=== PATIENT | female | born 1995 | race African-American/Black ===

== ENCOUNTER 2020-03-05 06:33 | Observation (INO) | payer OTHER, SELFPAY ==
[2020-03-05] VITALS (21 sets, daily range): BP systolic 98–133; BP diastolic 66–91; PULSE 104–118; RESP 12–19; TEMP 36.4–36.7; O2SAT 96–100; BMI 23.7
--- NOTE | ~2020-03-05 | XR_ITS ---
EXAMINATION: XR chest 2V DATE: 03/05/2020 06:59 INDICATION: Chest pain and shortness of breath TECHNIQUE: PA and lateral views of the chest were obtained. COMPARISON: None FINDINGS: The lungs are clear with no focal airspace opacities, pulmonary edema, pleural effusion or pneumothor ax. The cardiomediastinal silhouette is normal. Visualized bones and soft tissues are unremarkable. IMPRESSION: 1. No acute cardiopulmonary disease. Reviewed, dictated and finalized at location A.
--- NOTE | 2020-03-05 06:35 | ECG_ITS ---
Measurements Intervals [place] Rate: 111 P: 42 ND: 92 QRS: 75 QRSD: 82 T: 6 QT: 301 QTc: 410 Interpretive Statements SINUS TACHYCARDIA WITH SHORT ND INTERVAL POSSIBLE LEFT ATRIAL ENLARGEMENT NONSPECIFIC T-WAVE ABNORMALITY- ANT/INF LEADS BASELINE ARTIFACT- I, II, AVL ABNORMAL ECG Electronically Signed On 03-05-2020 14:10:08 CDT by Claudy Cota D.O.
--- NOTE | 2020-03-05 06:38 | ED.SOB ---
HPI - SOB/Dyspnea General Chief Complaint: Shortness of Breath/Dyspnea Stated Complaint: diff breathing/chest pain History of Present Illness HPI Narrative: 24 yo female w/ h/o type I DM presents to the ED by EMS c/o Chest pain and shortness of breath. Started last night at work. The pain was moderate in intensity. Worse with taking a deep breath. Associated with mild dyspnea. This nearly resolved after IV fluids were started by EMS. She also reports diarrhea, nausea, frequent urination since yesterday. Additionally had epigastric abdominal pain yesterday, which has since resolved. No cough, congestion, fever, dysuria, hematuria. She has had similar symptoms in the past due to DM. Reports the her BG has been up and down , >400 per EMS. Related Data Home Medications Medication Instructions Recorded Confirmed gabapentin 600 mg PO TID 03/05/20 03/05/20 insulin glargine [Lantus Solostar 28 unit SUBCUT HS 03/05/20 03/05/20 U-100 Insulin] insulin lispro [Humalog KwikPen 1 - 5 unit SUBCUT TIDWM 03/05/20 03/05/20 Insulin] insulin lispro [Humalog KwikPen 5 unit SUBCUT TIDWM 03/05/20 03/05/20 Insulin] Allergies Allergy/AdvReac Type Severity Reaction Status Date / Time No Known Allergies Allergy Verified 03/05/20 06:39 Review of Systems Review of Systems: All systems reviewed & are unremarkable except as noted in HPI and below Constitutional: Constitutional: Denies chills and Denies fever(s) Eyes: Eyes: Reports no additional eye complaints ENT: Reports system reviewed and no additional complaints, except as documented Cardiovascular: Cardiovascular: Reports no additional cardiovascular complaints and Reports chest pain Respiratory: Respiratory: Denies chest congestion, Denies cough and Reports dyspnea Gastrointestinal: Gastrointestinal: Reports diarrhea, Reports nausea and Denies vomiting Genitourinary: Genitourinary: Denies hematuria, Reports nocturia and Denies dysuria Musculoskeletal: Musculoskeletal: Reports no additional musculoskeletal complaints Neurologic: Denies numbness and Denies weakness Endocrine: Endocrine: Reports polyuria [facility] Past Medical History Medical History (Updated 03/05/20 @ 12:10 by Jason Harris MD) Type I diabetes mellitus Family History Family History (Updated 03/05/20 @ 11:58 by Carly Dawn RN) Mother Thyroid disease Social History Social History (Updated 03/05/20 @ 06:46 by Jason Harris MD) Smoking status: Never smoker Alcohol intake: never Substance use: never Spiritual care concerns: No Exam Const: General: no acute distress and alert Nutritional Appearance: well nourished Orientation/consciousness: patient oriented x3 HENMT: Mouth: Yes dry mucous membranes Resp: Effort & Inspection: normal respiratory effort Auscultation: clear to auscultation bilaterally Cardio: Rate: tachycardic Rhythm: regular rhythm GI: Inspection: non-distended GI Palp: Yes Soft to palpation, Yes Tenderness to palpation present (GI) (Mild RLQ), No Guarding due to palpation present (GI) and No Rebound tenderness present Skin: General skin exam: normal color Rashes: no rashes Neuro: General: patient oriented x3, moves all extremities and no focal motor deficits Speech: normal speech Extrem: General: normal to inspection and no edema Psych: Mental Status: mental status grossly normal Affect: normal affect Attitude: cooperative Thought content: Yes Normal thought content present Course Vital Signs Vital signs: Vital Signs Temperature 36.7 C 03/05/20 06:31 Pulse Rate 116 H 03/05/20 06:31 Respiratory Rate 12 03/05/20 06:31 Blood Pressure 115/86 03/05/20 06:31 Pulse Oximetry 98 03/05/20 06:31 Temperature 36.7 C 03/05/20 06:31 Pulse Rate 110 H 03/05/20 11:02 Respiratory Rate 14 03/05/20 11:02 Blood Pressure 106/83 03/05/20 10:15 Pulse Oximetry 99 03/05/20 11:02 MDM - SOB/Dyspnea MDM Narrative Medi
[2020-03-05] MEDS: SODIUM CHLORIDE 0.9% IV 1,000 ML 999 ML IV CONT ×3 (06:42→08:06)
[2020-03-05] MEDS: INSULIN HUMAN REGULAR (*BKC) 100 UNITS/ML 10 UNITS IV PUSH (06:42)
[2020-03-05 06:47] LABS: Basophils Percent Auto 0.2 % (0.2-1.2); Eosinophils Percent Auto 0.4 % (0-4.4); Hematocrit 41.1 % (37.0-47.0); Hemoglobin 12.8 g/dL (12.0-15.0); Immature Granulocyte Absolute 0.03 K/mm3 (0.00-0.031); Immature Granulocyte Percent A 0.4 % (0-0.5); Lymphocytes Absolute Auto 1.88 K/mm3 (0.9-3.2); Lymphocytes Percent Auto 23.3 % (18.3-44.2); Mean Corpuscular HGB Conc 31.1 g/dl (32-36); Mean Corpuscular Hemoglobin 27.7 pg (26-34); Mean Platelet Volume 10.1 fl (7.4-10.4); Monocytes Absolute Auto 0.6 K/mm3 (0.1-0.6); Monocytes Percent Auto 7.3 % (2.6-8.5); Neutrophils Absolute Auto 5.5 K/mm3 (1.3-6.7); Neutrophils Percent Auto 68.4 % (45.5-73.1); Platelet Count Result 381 k/mm3 (150-375); Red Blood Count 4.62 M/mm3 (4.2-5.4); Red Cell Distribution Width 15.2 % (11.5-14.5); White Blood Count 8.1 K/mm3 (4.5-10.0)
--- NOTE | 2020-03-05 06:48 | PC.NURSE ---
pt attempting for urine sample
--- NOTE | 2020-03-05 06:57 | PC.NURSE ---
pt to xray
[2020-03-05 07:05] LABS: Alanine Aminotransferase 34 U/L (4-35); Albumin Level 4.4 g/dL (3.5-5.1); Alkaline Phosphatase 194 U/L (38-126); Aspartate Amino Transferase 25 U/L (14-36); Blood Urea Nitrogen 22 mg/dL (7-17); Calcium 9.1 mg/dL (8.4-10.2); Carbon Dioxide 19 mmol/L (22-30); Chloride 95 mmol/L (98-107); Estimated Glomerular Filt Rate > 60; Glucose 593 mg/dL (65-105); Magnesium 1.9 mg/dL (1.6-2.3); Phosphorus 4.4 mg/dL (2.5-4.5); Potassium 4.8 mmol/L (3.4-5.0); Sodium 131 mmol/L (137-145)
[2020-03-05 07:08] LABS: Add Urine Microscopic? YES; Appearance Urine Clear (Clear); Bilirubin Urine Negative (Negative); Blood Urine Negative (Negative); Color Urine Colorless (Yellow); Glucose Urine UA 3+ mg/dL (Negative); Ketones Urine 2+ mg/dL (Negative); Leukocyte Esterase Ur Trace LEU/UL (Negative); Nitrate Urine Negative (Negative); Protein Urine Negative (Negative); RBC Urine 0-2 /hpf (0-2); Specific Grav Ur 1.031 (1.001-1.035); Squamous Epithelial Cell Urine Few /hpf (Few); Urobilinogen Urine Negative mg/dL (<2.0)
--- NOTE | 2020-03-05 07:09 | PC.NURSE ---
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
[2020-03-05 07:25] LABS: Glucose Point of Care > 500 (65-105)
--- NOTE | 2020-03-05 07:28 | PC.NURSE ---
Report received from JEFF Chacon, to continue care.
[2020-03-05 07:49] LABS: Beta-Hydroxybutyrate/Acetoacetate 6.59 mmol/L (0.02-0.27)
[2020-03-05] MEDS: INSULIN HUMAN REGULAR (*BKC) 100 UNITS in SODIUM CHLORIDE 0.9% IV 99 ML 10.7 UNITS IV CONT (08:05)
[2020-03-05 08:46] LABS: Glucose Point of Care 258 (65-105)
--- NOTE | 2020-03-05 08:52 | PC.NURSE ---
Insulin decreased per protocol. Awaiting bed availability at present time. Pt denies needs.
--- NOTE | 2020-03-05 08:59 | PC.NURSE ---
Per Dr. Dee, wish for repeat BMP after 3rd liter is infused, then call with results of anion gap. Approx 100cc NS remains to infuse. Pt updated on continued delay in getting to inpatient unit.
[2020-03-05 09:41] LABS: Potassium 3.6 mmol/L (3.4-5.0)
[2020-03-05 09:42] LABS: Blood Urea Nitrogen 17 mg/dL (7-17); Calcium 7.6 mg/dL (8.4-10.2); Carbon Dioxide 17 mmol/L (22-30); Chloride 109 mmol/L (98-107); Estimated Glomerular Filt Rate > 60; Glucose 216 mg/dL (65-105); Sodium 136 mmol/L (137-145)
--- NOTE | 2020-03-05 09:43 | PC.NURSE ---
Repeat anion gap = 10 mg/dl.
--- NOTE | 2020-03-05 09:53 | PC.NURSE ---
Insulin gtt decreased per protocol for blood sugar 162 mg/dl. Dr. Harris speaks to Dr. Dee whom states that Dr. Nick will be enroute to ED to evaluate patient and possibly place on long acting insulin and admit to floor instead of ICU.
--- NOTE | 2020-03-05 10:01 | PC.NURSE ---
Insulin gtt turned off per order Dr. Harris for blood sugar 162.
[2020-03-05 10:34] LABS: Glucose Point of Care 160 (65-105)
[2020-03-05 10:35] LABS: Glucose Point of Care 162 (65-105)
--- NOTE | 2020-03-05 10:51 | PC.NURSE ---
Report to [facility], 3rd floor @ [id number]. Mimi, Comb Capper now changing room to IMU. SBAR refaxed.
--- NOTE | 2020-03-05 11:05 | PC.NURSE ---
Attempt to call report to IMU, state's they're unaware of patient but will assign an RN and have them return call for report. Pt's lunch tray delivered.
--- NOTE | 2020-03-05 11:39 | PC.NURSE ---
This patient, Meenu Mohan, was admitted to IMU Room 207-01. Patient/family oriented to hospital policies and general routines including ID bracelet, bed and alarms, visiting hours, pain management, procedures, bathroom and other care routines, personal items, smoking policy, room service/diet, and visiting hours. Valuables list has been completed. Information on how to activate the Rapid Response Team has been discussed. Patient/Family are encouraged to report perceived risks to care and to ask questions if they do not understand what they are told or what they should do.
--- NOTE | 2020-03-05 12:19 | PM.IMHP ---
H&P: HPI History of Present Illness Chief complaint: DKA/UTI Narrative: Meenu Mohan is a 24 year old female Review of Systems Review of Systems: All systems reviewed & are unremarkable except as noted in HPI and below PMFSH Past Medical History Medical History (Updated 03/05/20 @ 12:10 by Jason Harris MD) Type I diabetes mellitus Family History Family History (Updated 03/05/20 @ 11:58 by Carly Dawn RN) Mother Thyroid disease Social History Social History (Updated 03/05/20 @ 06:46 by Jason Harris MD) Smoking status: Never smoker Alcohol intake: never Substance use: never Spiritual care concerns: No Meds Home Medications and Allergies Home Medications Medication Instructions Recorded Confirmed Type gabapentin 600 mg PO TID 03/05/20 03/05/20 History insulin glargine [Lantus Solostar 28 unit SUBCUT HS 03/05/20 03/05/20 History U-100 Insulin] insulin lispro [Humalog KwikPen 1 - 5 unit SUBCUT TIDWM 03/05/20 03/05/20 History Insulin] insulin lispro [Humalog KwikPen 5 unit SUBCUT TIDWM 03/05/20 03/05/20 History Insulin] Allergies Allergy/AdvReac Type Severity Reaction Status Date / Time No Known Allergies Allergy Verified 03/05/20 06:39 Vital Signs Vital Signs - 24 hr 03/05/20 06:31 03/05/20 06:37 03/05/20 07:08 Temperature 98.1 F Pulse Rate 116 H 111 H Respiratory Rate 12 Blood Pressure 115/86 Pulse Oximetry 98 98 03/05/20 07:23 03/05/20 07:30 03/05/20 07:45 Temperature Pulse Rate 118 H 115 H 112 H Respiratory Rate 18 18 18 Blood Pressure 117/86 113/90 115/89 Pulse Oximetry 100 100 100 03/05/20 08:00 03/05/20 08:15 03/05/20 08:30 Temperature Pulse Rate 111 H 115 H 112 H Respiratory Rate 17 17 19 Blood Pressure 114/87 123/91 H 118/88 Pulse Oximetry 100 100 03/05/20 08:45 03/05/20 09:00 03/05/20 09:15 Temperature Pulse Rate 113 H 115 H 108 H Respiratory Rate 17 18 17 Blood Pressure 114/85 98/66 L 99/72 L Pulse Oximetry 100 99 100 03/05/20 09:31 03/05/20 09:45 03/05/20 10:00 Temperature Pulse Rate 113 H 104 H 106 H Respiratory Rate 18 15 17 Blood Pressure 104/75 108/80 Pulse Oximetry 100 100 99 03/05/20 10:15 03/05/20 10:31 03/05/20 11:02 Temperature Pulse Rate 108 H 108 H 110 H Respiratory Rate 14 17 14 Blood Pressure 106/83 Pulse Oximetry 98 99 H&P: Results Labs Labs: Short CBC 03/05/20 Range/Units 06:42 WBC 8.1 (4.5-10.0) K/mm3 Hgb 12.8 (12.0-15.0) g/dL Hct 41.1 (37.0-47.0) % Plt Count 381 H (150-375) k/mm3 BMP 03/05/20 03/05/20 06:42 09:24 Sodium 131 L 136 L Potassium 4.8 3.6 Chloride 95 L 109 H Carbon Dioxide 19 L 17 L BUN 22 H 17 Creatinine 0.70 0.60 L Glucose 593 H* 216 H Calcium 9.1 7.6 L Liver Function 03/05/20 Range/Units 06:42 Total Bilirubin 1.0 (0.2-1.3) mg/dL AST 25 (14-36) U/L ALT 34 (4-35) U/L Alkaline Phosphatase 194 H (38-126) U/L Albumin 4.4 (3.5-5.1) g/dL Urine 03/05/20 Range/Units 06:59 Urine Color Colorless (Yellow) Urine Appearance Clear (Clear) Urine pH 6.0 (5.0-9.0) Ur Specific [place] 1.031 (1.001-1.035) Urine Protein Negative (Negative) mg/dL Urine Glucose (UA) 3+ H (Negative) mg/dL
[2020-03-05 12:33] LABS: Glucose Point of Care 271 (65-105)
[2020-03-05] MEDS: INSULIN ASPART (*BKC) 100 UNITS/ML SUB-Q ×3 (12:50→17:55)
[2020-03-05] MEDS: GABAPENTIN 300 MG CAPSULE 600 MG PO (12:50)
--- NOTE | 2020-03-05 14:31 | PM.SD ---
Same Day Admit/Disch: HPI History of Present Illness Chief complaint: DKA/UTI Narrative: Meenu Mohan is a 24 year old female with a history of type 1 diabetes since age 2 has recently had an A1c of 11. Her blood sugars typically run 250-350. However over the last 3-4 days she has had some gastrointestinal upset with nausea diarrhea and some vomiting. Her blood sugars have been up in the 5-600 range. One blood sugar within the 24 hours prior to admission was actually over 600 and her meter read high. Because of ongoing nausea vomiting and chest discomfort associated with vomiting she presented to the emergency department in the licensed staff mft hours of March 05. She has had no recent travel and no exposure to ill individuals. 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 Typically she has occasional hypoglycemia treated with glucose tablets or gel. She has glucagon available but has not had to use that for several months. FOR[facility]LY [facility], [facility] Past Medical History Medical History (Updated 03/05/20 @ 14:48 by Tenzin Lawrence MD) DKA (diabetic ketoacidosis) Type I diabetes mellitus Family History Family History (Updated 03/05/20 @ 14:52 by Tenzin Lawrence MD) Mother Thyroid disease Father Well adult Social History Social History (Updated 03/05/20 @ 14:52 by Tenzin Lawrence MD) Smoking status: Never smoker Alcohol intake: never Substance use: never Living arrangements: with friend(s) Additional living arrangements comments: Resides with boyfriend. No children. 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 Gender identity (if verbalized by the patient): Female Spiritual care concerns: No Same Day Admit/Disch: Med Pre-admit Medications Home Medications Medication Instructions Recorded Confirmed Type gabapentin 600 mg PO TID 03/05/20 03/05/20 History insulin glargine [Lantus Solostar 28 unit SUBCUT HS 03/05/20 03/05/20 History U-100 Insulin] insulin lispro [Humalog KwikPen 1 - 5 unit SUBCUT TIDWM 03/05/20 03/05/20 History Insulin] insulin lispro [Humalog KwikPen 5 unit SUBCUT TIDWM 03/05/20 03/05/20 History Insulin] Exam Narrative: Exam Narrative: HEENT: EOMI, sclerae nonicteric, PERRL, pharyngeal mucosa pink and intact NECK: No JVD, adenopathy, or thyromegaly CHEST: Clear to auscultation. Normal effort. HEART: NL S1/S2, regular, no murmur ABDOMEN: BS+, soft, nontender, no mass, no bruits EXTREMITIES: No cyanosis, edema, or clubbing NEUROLOGIC: CN intact and symmetric to inspection. MUSCULOSKELETAL: Tone and strength symmetric. PSYCH: Alert. Oriented to person, place, and time. DS: Data Data Completed and Pending Labs on day of discharge: Labs from last 24 hours 03/05/20 03/05/20 03/05/20 11:53 10:33 09:47 WBC RBC Hgb Hct MCV MCH MCHC RDW Plt Count MPV Immature Gran % (Auto) Neut % (Auto) Lymph % (Auto) [place] % (Auto) Eos % (Auto) Baso % (Auto) Lymph # (Auto) [place] # (Auto) Eos # (Auto) Baso # (Auto) Abs Immat Gran (auto) Absolute Neuts (auto) Absolute Nucleated RBC Nucleated RBC % Sodium Potassium Chloride Carbon Dioxide BUN Creatinine Estim Creat Clear Calc Estimated GFR Glucose POC Capillary Glucose 271 H 160 H 162 H Calcium Phosphorus Magnesium Total Bilirubin AST ALT Alkaline Phosphatase Total Protein Albumin Beta-Hydroxybutyrate/Acetoacetate Urine Color Urine Appearance Urine pH Ur Specific [place] Urine Protein Urine Glucose (UA) Urine Ketones Ur Blood (Man) Urine Nitrate Urine Bilirubin Urine Urobilinogen Leukocyte Esterase Rfl Urine RBC Urine WBC Ur Squamous Epith Cells 03/05/20 03/05/20 03/05/20 09:24 08:44 06:59 WBC RBC Hgb Hct MCV M
[2020-03-05 15:50] LABS: Glucose Point of Care 310 (65-105)
--- NOTE | 2020-04-02 10:49 | WPDINTPN ---
Subjective Date/time seen: 04/02/20 10:49 Patient was not seen in the ICU as she was transferred out of the ICU before I could consult and evaluate on her. Objective Data Meds/Results Radiology Results: ITS Impressions Chest X-Ray 03/05/20 07:00 IMPRESSION: 1. No acute cardiopulmonary disease. Quality VTE Prophylaxis VTE prophylaxis: mechanical ordered
== END 2020-03-05 18:29 | disposition home or self-care (01) ==
LOC: ANHED 08:28 → ANHIMU 11:06
PROVIDERS: Internal Medicine; Admitting Provider Family Medicine; Emergency Provider Emergency Medicine; Visit Provider Internal Medicine
DX: E10.10 Type 1 diabetes mellitus with ketoacidosis without coma (principal); Z79.4 Long term (current) use of insulin; R82.90 Unspecified abnormal findings in urine
CPT/HCPCS: 36415; 71046; 80048; 80053; 81001; 81025; 82010; 82948; 83735; 84100; 85025; 87077; 87086; 87088; 87186; 93005; 96361; 96365; 96366; 96367; 96376; 99285; A9270; G0378; J0696; J1815; J7030

== ENCOUNTER 2020-04-04 06:58 | Inpatient (IN) | payer OTHER, SELFPAY ==
[2020-04-04] VITALS (15 sets, daily range): BP systolic 105–126; BP diastolic 72–95; PULSE 94–115; RESP 15–22; TEMP 36.6–37; O2SAT 96–100; BMI 21.7
--- NOTE | ~2020-04-04 | XR_ITS ---
XR chest 2V DATE: 04/04/2020 07:59 INDICATION: Chest pain TECHNIQUE: PA and lateral views COMPARISON: 03/05/2022 view chest FINDINGS: Normal heart size. No hilar or mediastinal enlargement. No pulmonary infiltrate or consolid ation, pleural effusion or pulmonary vascular congestion or pneumothorax. Included skeletal structure s are unremarkable. IMPRESSION: Negative chest Reviewed, dictated and finalized at location A. IMPRESSION: Negative chest
--- NOTE | 2020-04-04 07:17 | ECG_ITS ---
Measurements Intervals [place] Rate: 110 P: 57 [place]: 122 QRS: 74 QRSD: 82 T: 30 QT: 348 QTc: 472 Interpretive Statements SINUS TACHYCARDIA POSSIBLE LEFT ATRIAL ENLARGEMENT NONSPECIFIC T-WAVE ABNORMALITY- INFERIOR LEADS ABNORMAL ECG Electronically Signed On 04-04-2020 7:23:34 CDT by Claudy Cota D.O.
--- NOTE | 2020-04-04 07:21 | ED.GENADULT ---
HPI - General Adult General Chief complaint: Chest Pain Stated complaint: cp, nausea, hi sugar, back pains Time Seen by Provider: 04/04/20 07:08 Source: patient Mode of arrival: ambulatory Limitations: no limitations History of Present Illness HPI narrative: Patient is a 24-year-old female who presents to the emergency department with complaint of chest pain, high blood sugar, and dysuria. Patient states she has had elevated blood sugars and urinary symptoms over the past couple of days. Patient states her blood sugars typically become elevated when she has UTI. Patient reports urinary frequency and irritable sense in her bladder after she urinates. Patient also has bilateral flank pain. Patient reports onset of chest pain this morning. She describes it as a tightness. She has also had nausea but is denying any vomiting or diarrhea. She denies any shortness of breath. She is reporting some mild epigastric pain. Patient reports her last episode of DKA was approximately a couple of months ago. However, on review of records, patient was admitted for DKA approximately 1 month ago here. MD complaint: Chest pain, high blood sugar, UTI Related Data Home Medications Medication Instructions Recorded Confirmed Lantus Solostar U-100 Insulin 33 unit SUBCUT HS 03/05/20 04/04/20 gabapentin 600 mg PO TID 03/05/20 04/04/20 insulin lispro [Humalog KwikPen 1 - 5 unit SUBCUT TIDWM 03/05/20 04/04/20 Insulin] insulin lispro [Humalog KwikPen 5 unit SUBCUT TIDWM 03/05/20 04/04/20 Insulin] Allergies Allergy/AdvReac Type Severity Reaction Status Date / Time No Known Allergies Allergy Verified 04/04/20 08:36 Review of Systems Review of Systems: All systems reviewed & are unremarkable except as noted in HPI and below Constitutional: Constitutional: Denies fever(s) Cardiovascular: Cardiovascular: Reports chest pain Respiratory: Respiratory: Denies dyspnea Gastrointestinal: Gastrointestinal: Reports abdominal pain, Denies diarrhea, Reports nausea and Denies vomiting Genitourinary: Genitourinary: Reports nocturia, Denies dysuria and Reports other (Bladder irritation) Musculoskeletal: Musculoskeletal: Reports back pain PMFSH Past Medical History Medical History DKA (diabetic ketoacidosis) Type I diabetes mellitus Family History Family History (Updated 04/04/20 @ 10:30 by Michael Gil RN) Mother Thyroid disease Father Well adult Thyroid disease Social History Social History Smoking status: Never smoker Alcohol intake: never Substance use: never Additional living arrangements comments: Resides with boyfriend. No children. 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 Gender identity (if verbalized by the patient): Female Spiritual care concerns: No Exam Const: General: cooperative, no acute distress and alert Nutritional Appearance: well nourished Orientation/consciousness: patient oriented x3 Limitations: no limitations Eyes: Conjunctivae: conjunctivae normal Pupils: Equal, round and reactive pupils present Resp: Effort & Inspection: normal respiratory effort Auscultation: clear to auscultation bilaterally Cardio: Rate: tachycardic Rhythm: regular rhythm GI: GI Palp: Yes Soft to palpation and Yes Tenderness to palpation present (GI) (Mild epigastric) Auscultation: normal bowel sounds : General: Yes CVA tenderness bilateral Skin: General skin exam: normal color and no rashes or lesions noted Neuro: General: patient oriented x3 Cognition (Neuro): normal cognition Speech: normal speech Extrem: General: normal to inspection, full ROM and no clubbing, cyanosis or edema Psych: Mental Status: mental status grossly normal Affect: normal affect Attitude: cooperative Course Course Emergency Course: Patient with markedly elevated blood glucose and
[2020-04-04] MEDS: SODIUM CHLORIDE 0.9% IV 1,000 ML 999 ML IV CONT ×2 (07:26→08:13)
[2020-04-04] MEDS: ONDANSETRON INJ 4 MG/2 ML VIAL IV PUSH (07:26)
[2020-04-04 07:41] LABS: Fractional Inspired Oxygen 21 %; HCO3 VBG 16.4 mEq/l (24.0-30.0); PO2 VBG 71.9 mmHg (35.0-45.0)
[2020-04-04 07:43] LABS: PCO2 VBG 27.1 mmHg (42.0-48.0)
[2020-04-04 07:44] LABS: Device ROOM AIR
[2020-04-04 07:48] LABS: Basophils Percent Auto 0.7 % (0.2-1.2); Eosinophils Percent Auto 0.7 % (0-4.4); Hematocrit 41.8 % (37.0-47.0); Hemoglobin 13.2 g/dL (12.0-15.0); Immature Granulocyte Absolute 0.01 K/mm3 (0.00-0.031); Immature Granulocyte Percent A 0.2 % (0-0.5); Lymphocytes Absolute Auto 1.69 K/mm3 (0.9-3.2); Lymphocytes Percent Auto 37.7 % (18.3-44.2); Mean Corpuscular HGB Conc 31.6 g/dl (32-36); Mean Corpuscular Hemoglobin 27.9 pg (26-34); Mean Corpuscular Volume 88.4 fl (80-100); Mean Platelet Volume 11.3 fl (7.4-10.4); Monocytes Absolute Auto 0.4 K/mm3 (0.1-0.6); Monocytes Percent Auto 9.4 % (2.6-8.5); Neutrophils Absolute Auto 2.3 K/mm3 (1.3-6.7); Neutrophils Percent Auto 51.3 % (45.5-73.1); Platelet Count Result 265 k/mm3 (150-375); Red Blood Count 4.73 M/mm3 (4.2-5.4); Red Cell Distribution Width 13.5 % (11.5-14.5); White Blood Count 4.5 K/mm3 (4.5-10.0)
[2020-04-04 07:51] LABS: Add Urine Microscopic? YES; Appearance Urine Clear (Clear); Bilirubin Urine Negative (Negative); Blood Urine Negative (Negative); Color Urine Colorless (Yellow); Glucose Urine UA 3+ mg/dL (Negative); Ketones Urine 1+ mg/dL (Negative); Leukocyte Esterase Ur Negative LEU/UL (Negative); Mucus Urine Rare /lpf; Nitrate Urine Negative (Negative); Protein Urine Negative (Negative); RBC Urine 0-2 /hpf (0-2); Specific Grav Ur 1.028 (1.001-1.035); Urobilinogen Urine Negative mg/dL (<2.0); WBC Urine 0-3 /hpf
[2020-04-04 08:05] LABS: Glucose Point of Care > 500 (65-105)
[2020-04-04 08:15] LABS: Troponin I < 0.012 ng/mL (0.000-0.034)
[2020-04-04 08:17] LABS: Alanine Aminotransferase 19 U/L (4-35); Albumin Level 4.2 g/dL (3.5-5.1); Alkaline Phosphatase 262 U/L (38-126); Aspartate Amino Transferase 27 U/L (14-36); Blood Urea Nitrogen 20 mg/dL (7-17); Calcium 8.9 mg/dL (8.4-10.2); Carbon Dioxide 22 mmol/L (22-30); Chloride 89 mmol/L (98-107); Estimated CRCL calculation 98 ml/min; Estimated Glomerular Filt Rate > 60; Glucose 848 mg/dL (65-105); Lipase 316 U/L (23-300); Magnesium 1.9 mg/dL (1.6-2.3); Phosphorus 5.3 mg/dL (2.5-4.5); Potassium 4.9 mmol/L (3.4-5.0); Sodium 125 mmol/L (137-145)
[2020-04-04 08:33] LABS: Beta-Hydroxybutyrate/Acetoacetate 2.83 mmol/L (0.02-0.27)
[2020-04-04 08:42] LABS: Glucose Point of Care > 500 (65-105)
[2020-04-04] MEDS: INSULIN HUMAN REGULAR (*BKC) 100 UNITS in SODIUM CHLORIDE 0.9% IV 99 ML 15.8 UNITS IV CONT (09:15)
[2020-04-04 09:47] LABS: Glucose Point of Care > 500 (65-105)
--- NOTE | 2020-04-04 10:01 | WPDCNINT ---
Assessment and Plan Assessment and plan (1) DKA (diabetic ketoacidosis): Qualifiers: Diabetes mellitus complication detail: without coma Diabetes mellitus type: type 1 Qualified Code(s): E10.10 - Type 1 diabetes mellitus with ketoacidosis without coma Code(s): E11.10 - Type 2 diabetes mellitus with ketoacidosis without coma Status: Acute Assessment and Plan: patient presented with nausea, vomiting elevated blood sugars, positive beta hydroxybutyrate, elevated anion gap. Diagnosed with DKA, received 2 L of IV fluid bolus in the ED and started on insulin infusion per DKA protocol - in the ICU patient was given an additional IV fluid bolus of LR 1 L - UA was negative, patient has been coming off her cold thinks may have caused DKA - patient also complained of chest pain, troponin x1 was negative (2) Type I diabetes mellitus: Qualifiers: Diabetes mellitus complication status: with hyperglycemia Qualified Code(s): E10.65 - Type 1 diabetes mellitus with hyperglycemia Code(s): E10.9 - Type 1 diabetes mellitus without complications Status: Acute Assessment and Plan: patient states she has brittle diabetes, currently on 33 units Lantus at home and sliding scale insulin. 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 Patient is aware that she is on insulin drip and be transition once her acid levels and anion gap closes code status: Full code Critical-care time spent: 42 minutes Due to a high probability of clinically significant, life threatening deterioration, the patient required my highest level of preparedness to intervene emergently and I personally spent this critical care time directly and personally managing the patient. This critical care time included obtaining a history; examining the patient; pulse oximetry; ordering and review of studies; arranging urgent treatment with development of a management plan; evaluation of patient's response to treatment; frequent reassessment; and discussions with other providers. It was exclusive of separately billable procedures and treating other patients and teaching time. Please see Assessment and Plan section and the rest of the note for further information on patient assessment and treatment Instructor Flying Consult Note Consult date: 04/04/20 Time Seen: 09:51 Reason for consult: diabetic ketoacidosis, epigastric pain, nausea and vomiting HPI: Meenu Mohan is a 24 year old female with past medical history of diabetes type 1, recent DKA in February 2020 when she was admitted to [facility]. Patient presented to the ER today, 04/04/2020 complains of nausea, vomiting, chest pain, elevated blood sugars. Patient states that her symptoms started about 2 days ago on 04/02/2020 as she was getting over a cold. She states that whenever she has elevated blood sugars it is either related to UTI or cold. Patient was initially complaining of chest pain which has currently resolved. She also complains of being thirsty she states that she has been drinking fluids but has not been able to keep down anything for the last 2 days. Patient also complaining of bilateral flank pain. She denies any chest pain at this time In the ICU. patient had elevated blood sugars of 848, elevated anion gap of 14, elevated beta hydroxybutyrate. Patient was diagnosed with DKA, given 2 L of IV fluid bolus in the ED, started on insulin drip and transferred to the ICU for further management. Seen and examined the ICU upon arrival, continues to be thirsty and looks dehydrated and dry. An IV fluid bolus was given. Patient remains on insulin infusion. The chest pain at this time, no
[2020-04-04] MEDS: SODIUM CHLORIDE 0.9% IV 1,000 ML 150 ML IV CONT (10:13)
[2020-04-04] MEDS: LACTATED RINGERS 1,000 ML 999 ML IV CONT (10:14)
--- NOTE | 2020-04-04 10:47 | ADMGEN ---
This patient, Meenu Mohan, was admitted to Intensive Care Unit-12. Patient/family oriented to hospital policies and general routines including ID bracelet, bed and alarms, visiting hours, pain management, procedures, bathroom and other care routines, personal items, smoking policy, room service/diet, and visiting hours. Valuables list has been completed. Information on how to activate the Rapid Response Team has been discussed. Patient/Family are encouraged to report perceived risks to care and to ask questions if they do not understand what they are told or what they should do.
[2020-04-04 11:01] LABS: Blood Urea Nitrogen 17 mg/dL (7-17); Calcium 8.1 mg/dL (8.4-10.2); Carbon Dioxide 17 mmol/L (22-30); Chloride 103 mmol/L (98-107); Estimated CRCL calculation 98 ml/min; Estimated Glomerular Filt Rate > 60; Glucose 473 mg/dL (65-105); Potassium 3.7 mmol/L (3.4-5.0); Sodium 134 mmol/L (137-145)
[2020-04-04 11:11] LABS: Glucose Point of Care 306 (65-105)
[2020-04-04 11:13] LABS: Troponin I < 0.012 ng/mL (0.000-0.034)
[2020-04-04 14:04] LABS: Hemoglobin A1C > 14.0 % (<5.7)
[2020-04-04 14:06] LABS: Troponin I < 0.012 ng/mL (0.000-0.034)
[2020-04-04 14:08] LABS: Blood Urea Nitrogen 13 mg/dL (7-17); Calcium 8.1 mg/dL (8.4-10.2); Carbon Dioxide 27 mmol/L (22-30); Chloride 106 mmol/L (98-107); Estimated CRCL calculation 115 ml/min; Estimated Glomerular Filt Rate > 60; Glucose 121 mg/dL (65-105); Potassium 3.8 mmol/L (3.4-5.0); Sodium 138 mmol/L (137-145)
[2020-04-04 14:12] LABS: Glucose Point of Care 122 (65-105)
[2020-04-04 14:51] LABS: Glucose Point of Care 47 (65-105)
[2020-04-04 15:20] LABS: Glucose Point of Care 117 (65-105)
[2020-04-04] MEDS: INSULIN GLARGINE (*BKC) 100 UNITS/ML 30 UNITS SUB-Q (16:12)
[2020-04-04 17:07] LABS: Glucose Point of Care 149 (65-105)
[2020-04-04 19:44] LABS: Blood Urea Nitrogen 10 mg/dL (7-17); Calcium 8.3 mg/dL (8.4-10.2); Carbon Dioxide 27 mmol/L (22-30); Chloride 102 mmol/L (98-107); Estimated CRCL calculation 115 ml/min; Estimated Glomerular Filt Rate > 60; Glucose 248 mg/dL (65-105); Sodium 134 mmol/L (137-145)
[2020-04-04 19:46] LABS: Glucose Point of Care 135 (65-105)
[2020-04-04 19:46] LABS: Glucose Point of Care 174 (65-105)
[2020-04-04 19:47] LABS: Glucose Point of Care 442 (65-105)
[2020-04-04] MEDS: INSULIN HUMAN REGULAR (*BKC) 100 UNITS/ML 10 UNITS SUB-Q (19:58)
[2020-04-04 22:46] LABS: Glucose Point of Care 189 (65-105)
[2020-04-04 23:22] LABS: Blood Urea Nitrogen 12 mg/dL (7-17); Calcium 8.7 mg/dL (8.4-10.2); Carbon Dioxide 29 mmol/L (22-30); Chloride 99 mmol/L (98-107); Estimated CRCL calculation 98 ml/min; Estimated Glomerular Filt Rate > 60; Glucose 172 mg/dL (65-105); Potassium 3.7 mmol/L (3.4-5.0); Sodium 133 mmol/L (137-145)
[2020-04-05] VITALS: BP 101/74; PULSE 91; PULSE 99; RESP 17; TEMP 36.9; O2SAT 100
[2020-04-05 02:00] VITALS: BP 104/77; PULSE 88; PULSE 94; RESP 19
[2020-04-05 03:35] VITALS: PULSE 94; RESP 19; O2SAT 100
[2020-04-05 04:00] VITALS: BP 110/93; PULSE 91; PULSE 94; RESP 16; TEMP 36.9; O2SAT 100
[2020-04-05 04:59] LABS: Blood Urea Nitrogen 12 mg/dL (7-17); Calcium 8.3 mg/dL (8.4-10.2); Carbon Dioxide 26 mmol/L (22-30); Chloride 104 mmol/L (98-107); Estimated CRCL calculation 98 ml/min; Estimated Glomerular Filt Rate > 60; Glucose 155 mg/dL (65-105); Magnesium 1.9 mg/dL (1.6-2.3); Phosphorus 3.6 mg/dL (2.5-4.5); Potassium 3.9 mmol/L (3.4-5.0); Sodium 134 mmol/L (137-145)
[2020-04-05 06:00] VITALS: BP 109/78; PULSE 92; RESP 14
[2020-04-05 08:00] VITALS: BP 88/61; PULSE 97; PULSE 98; RESP 16; RESP 21; TEMP 36.8; O2SAT 100
[2020-04-05 08:15] LABS: Glucose Point of Care 157 (65-105)
[2020-04-05] MEDS: INSULIN GLARGINE (*BKC) 100 UNITS/ML 30 UNITS SUB-Q (08:30)
--- NOTE | 2020-04-05 08:30 | PM.SD ---
Same Day Admit/Disch: HPI History of Present Illness Chief complaint: dka Narrative: eMenu Mohan is a 24 year old female with type 1 diabetes. She was last hospitalized 1 month ago at [facility] with DKA. She was feeling well with her blood sugars running in the usual range around 250. She has been taking insulin. However 2 days prior to admission she noted increased urination slight dysuria. No back pain fevers chills. On the day of admission 04/04 she developed nausea vomiting and epigastric pain. She presented the emergency department with a blood sugar of 848. [facility] Past Medical History Medical History DKA (diabetic ketoacidosis) Type I diabetes mellitus Family History Family History Mother Thyroid disease Father Well adult Thyroid disease Social History Social History Smoking status: Never smoker Alcohol intake: never Substance use: never Additional living arrangements comments: Resides with boyfriend. No children. 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 Gender identity (if verbalized by the patient): Female Spiritual care concerns: No Same Day Admit/Disch: Med Pre-admit Medications Home Medications Medication Instructions Recorded Confirmed Type Lantus Solostar U-100 Insulin 33 unit SUBCUT HS 03/05/20 04/04/20 History gabapentin 600 mg PO TID 03/05/20 04/04/20 History insulin lispro [Humalog KwikPen 1 - 5 unit SUBCUT TIDWM 03/05/20 04/04/20 History Insulin] insulin lispro [Humalog KwikPen 5 unit SUBCUT TIDWM 03/05/20 04/04/20 History Insulin] Exam Narrative: Exam Narrative: HEENT: EOMI, PERRL, sclerae nonicteric, pharyngeal mucosa pink and intact NECK: No JVD CHEST: Clear to auscultation. Normal effort. HEART: NL S1/S2, regular, no murmur ABDOMEN: BS+, soft, nontender, no mass, no bruits EXTREMITIES: No cyanosis, edema, or clubbing NEUROLOGIC: CN intact and symmetric to inspection. MUSCULOSKELETAL: Tone and strength symmetric. PSYCH: Alert. Oriented to person, place, and time. DS: Data Data Completed and Pending Labs on day of discharge: Labs from last 24 hours 04/05/20 04/05/20 04/04/20 08:13 04:22 22:49 Sodium 134 L 133 L Potassium 3.9 3.7 Chloride 104 99 Carbon Dioxide 26 29 BUN 12 12 Creatinine 0.60 L 0.60 L Estim Creat Clear Calc 98 98 Estimated GFR > 60 > 60 Glucose 155 H 172 H POC Capillary Glucose 157 H Hemoglobin A1c Calcium 8.3 L 8.7 Phosphorus 3.6 Magnesium 1.9 Troponin I Beta-Hydroxybutyrate/Acetoacetate 04/04/20 04/04/20 04/04/20 22:43 19:39 18:03 Sodium 134 L Potassium 4.0 Chloride 102 Carbon Dioxide 27 BUN 10 Creatinine 0.50 L Estim Creat Clear Calc 115 Estimated GFR > 60 Glucose 248 H POC Capillary Glucose 189 H 442 H Hemoglobin A1c Calcium 8.3 L Phosphorus Magnesium Troponin I Beta-Hydroxybutyrate/Acetoacetate 04/04/20 04/04/20 04/04/20 17:05 15:17 14:49 Sodium Potassium Chloride Carbon Dioxide BUN Creatinine Estim Creat Clear Calc Estimated GFR Glucose POC Capillary Glucose 149 H 117 H 47 L* Hemoglobin A1c Calcium Phosphorus Magnesium Troponin I Beta-Hydroxybutyrate/Acetoacetate 04/04/20 04/04/20 04/04/20 14:10 13:18 13:15 Sodium Potassium Chloride Carbon Dioxide BUN Creatinine Estim Creat Clear Calc Estimated GFR Glucose POC Capillary Glucose 122 H 135 H Hemoglobin A1c > 14.0 H Calcium Phosphorus Magnesium Troponin I Beta-Hydroxybutyrate/Acetoacetate 04/04/20 04/04/20 04/04/20 13:15 13:15 12:21 Sodium 138 Potassium 3.8 Chloride 106 Carbon Dioxide 27 BUN 13 Creatinine 0.50 L Estim C
--- NOTE | 2020-04-05 13:13 | WPDINTPN ---
Progress Note: A&P Assessment and Plan (1) DKA (diabetic ketoacidosis): Qualifiers: Diabetes mellitus complication detail: without coma Diabetes mellitus type: type 1 Qualified Code(s): E10.10 - Type 1 diabetes mellitus with ketoacidosis without coma Code(s): E11.10 - Type 2 diabetes mellitus with ketoacidosis without coma Status: Acute Assessment and Plan: RESOLVED: - patient presented with nausea, vomiting elevated blood sugars, positive beta hydroxybutyrate, elevated anion gap. Diagnosed with DKA, received 2 L of IV fluid bolus in the ED and started on insulin infusion per DKA protocol - PATIENT HAS BEEN ON LANTUS AND SLIDING SCALE INSULIN WITH ACCU-CHEKS - UA was negative, patient has been coming off her cold thinks may have caused DKA - patient also complained of chest pain, troponin x1 was negative (2) Type I diabetes mellitus: Qualifiers: Diabetes mellitus complication status: with hyperglycemia Qualified Code(s): E10.65 - Type 1 diabetes mellitus with hyperglycemia Code(s): E10.9 - Type 1 diabetes mellitus without complications Status: Acute Assessment and Plan: patient states she has brittle diabetes, currently on 33 units Lantus at home and sliding scale insulin. - Patient has an appointment with her physician allergist immunologist in May 2020 - hemoglobin A1c >14.0 - I DISCUSSED WITH PATIENT REGARDING BETTER CONTROL OF HER DIABETES, CALLING THE CONFERENCE TRANSLATOR IN SCHEDULING AN APPOINTMENT SOONER IN MAY. (3) DVT prophylaxis: Code(s): Z29.9 - Encounter for prophylactic measures, unspecified Status: Acute Assessment and Plan: SCDs Additional Plan DISCUSSED WITH PATIENT, SHE IS AWARE THAT SHE IS GOING TO GO HOME TODAY code status: Full code Critical-care time spent: 31 minutes Due to a high probability of clinically significant, life threatening deterioration, the patient required my highest level of preparedness to intervene emergently and I personally spent this critical care time directly and personally managing the patient. This critical care time included obtaining a history; examining the patient; pulse oximetry; ordering and review of studies; arranging urgent treatment with development of a management plan; evaluation of patient's response to treatment; frequent reassessment; and discussions with other providers. It was exclusive of separately billable procedures and treating other patients and teaching time. Please see Assessment and Plan section and the rest of the note for further information on patient assessment and treatment Subjective Date/time seen: 04/05/20 13:13 Reason for consult: diabetic ketoacidosis, epigastric pain, nausea and vomiting 04/05/2020: Patient seen and examined. Has been of the insulin infusion since yesterday, blood sugars have been adequate, patient did receive her long-acting insulin and is on sliding scale insulin with Accu-Cheks. patient denies any nausea, vomiting, diarrhea. Denies any abdominal pain, chest pain, shortness of breath. Patient has been afebrile, adequate urine output, hemodynamically stable Review of Systems Review of Systems: All systems reviewed & are unremarkable except as noted in HPI and below Exam Const: General: comfortable and no acute distress HENMT: Mouth: Yes dry mucous membranes Eyes: Sclera: sclerae normal Pupils: Equal, round and reactive pupils present Neck: Neck: supple and no JVD Resp: Effort & Inspection: normal respiratory effort Auscultation: clear to auscultation bilaterally Cardio: Rate: regular rate Rhythm: regular rhythm GI: Inspection: non-distended GI Palp: Yes Soft to palpation and No Tenderness to palpation present (GI) Auscultation: normal bowel sounds : Other: Deferred Urinary Catheter: Urinary Catheter: urine clear Skin: General skin exam: normal color and no rashes or lesions noted Neuro: Cranial nerves: Yes
== END 2020-04-05 09:55 | disposition home or self-care (01) | DRG 639 ==
LOC: ANHED 08:44 → ANHICU 09:45
PROVIDERS: Internal Medicine; Admitting Provider Family Medicine; Emergency Provider Emergency Medicine; PCP Nurse Practitioner Family; Visit Provider Internal Medicine
DX: E10.10 Type 1 diabetes mellitus with ketoacidosis without coma (principal); R30.0 Dysuria; Z79.4 Long term (current) use of insulin
CPT/HCPCS: 36415; 71046; 80048; 80053; 81001; 81025; 82010; 82803; 82948; 83036; 83690; 83735; 84100; 84484; 85025; 93005; 96361; 96365; 96375; 99291; J1815; J2405; J7030; J7120

== ENCOUNTER 2020-06-30 16:16 | Inpatient (IN) | payer OTHER, SELFPAY ==
[2020-06-30] VITALS (10 sets, daily range): BP systolic 104–134; BP diastolic 56–94; PULSE 95–140; RESP 18–30; TEMP 36.5–37.4; O2SAT 99–100; BMI 23.1
--- NOTE | ~2020-06-30 | XR_ITS ---
EXAMINATION: XR chest 1V portable EXAM DATE: 06/30/2020 17:26 INDICATION: Chest pain, shortness of breath. Weakness and fatigue. TECHNIQUE: Portable AP frontal chest x-ray was obtained. Comparison is made to prior examination from 03/25/2020. FINDINGS: The lungs are clear. There are no pleural effusions. The cardiomediastinal silhouette is within normal limits. There is no pneumothorax suspected. The bones and soft tissues are unremarkab le. IMPRESSION: Normal chest x-ray exam. Reviewed, dictated and finalized at location A. IMPRESSION: Normal chest x-ray exam.
--- NOTE | 2020-06-30 16:17 | ECG_ITS ---
Measurements Intervals [place] Rate: 132 P: 57 SD: 124 QRS: 76 QRSD: 80 T: 3 QT: 290 QTc: 431 Interpretive Statements SINUS TACHYCARDIA BORDERLINE ST-T WAVE ABNORMALITY- INFERIOR LEADS ABNORMAL ECG Electronically Signed On 06-30-2020 17:34:23 CDT by Claudy Cota D.O.
[2020-06-30] MEDS: SODIUM CHLORIDE 0.9% IV 1,000 ML 999 ML IV CONT ×3 (16:41→18:53)
[2020-06-30 16:54] LABS: Base Excess ABG -20.6 mEq/l (+/-2.0); Carboxyhemoglobin 0.3 % THb (0-2.0); Fractional Inspired Oxygen 21 %; HCO3 ABG 5.1 mEq/l (22.0-26.0); Methemoglobin ABG 0.4 %THb (0-1.5); Oxygen Content ABG 18.1 %vol (16.0-22.0); Oxygen Saturation ABG 97.3 % (95.0-100.0); Oxyhemoglobin 96.8 % THb (90.0-100.0); PO2 ABG 113.4 mmHg (80.0-100.0); Reduced Hemoglobin 2.5 %THb (0-5.0); Total Hemoglobin 13.2 g/dL (12.0-18.0)
[2020-06-30 16:55] LABS: Basophils Percent Auto 0.5 % (0.2-1.2); Hematocrit 43.8 % (37.0-47.0); Hemoglobin 13.5 g/dL (12.0-15.0); Immature Granulocyte Absolute 0.03 K/mm3 (0.00-0.031); Immature Granulocyte Percent A 0.5 % (0-0.5); Lymphocytes Absolute Auto 1.02 K/mm3 (0.9-3.2); Lymphocytes Percent Auto 16.5 % (18.3-44.2); Mean Corpuscular HGB Conc 30.8 g/dl (32-36); Mean Corpuscular Hemoglobin 28.2 pg (26-34); Mean Corpuscular Volume 91.4 fl (80-100); Monocytes Absolute Auto 0.6 K/mm3 (0.1-0.6); Monocytes Percent Auto 9.9 % (2.6-8.5); Neutrophils Absolute Auto 4.5 K/mm3 (1.3-6.7); Neutrophils Percent Auto 72.6 % (45.5-73.1); Platelet Count Result 258 k/mm3 (150-375); Red Blood Count 4.79 M/mm3 (4.2-5.4); Red Cell Distribution Width 14.7 % (11.5-14.5); White Blood Count 6.2 K/mm3 (4.5-10.0)
[2020-06-30 16:56] LABS: PCO2 ABG 13.6 mmHg (35.0-45.0); pH ABG 7.192 (7.350-7.450)
[2020-06-30 16:57] LABS: Device ROOM AIR; Modified Allen's Test Pass; Site Drawn LEFT RADIAL
[2020-06-30 17:05] LABS: INR 1.1; Partial Thromboplastin Time 27.5 SECONDS (22.3-36.8); Prothrombin Time 13.6 Seconds (11.1-14.7)
[2020-06-30 17:13] LABS: Alanine Aminotransferase 21 U/L (4-35); Albumin Level 4.5 g/dL (3.5-5.1); Alkaline Phosphatase 169 U/L (38-126); Aspartate Amino Transferase 33 U/L (14-36); Bilirubin,Total 0.6 mg/dL (0.2-1.3); Lipase 120 U/L (23-300); Magnesium 2.2 mg/dL (1.6-2.3); Phosphorus 5.2 mg/dL (2.5-4.5)
[2020-06-30 17:22] LABS: Troponin I < 0.012 ng/mL (0.000-0.034)
[2020-06-30 17:28] LABS: Beta HCG Quantitative < 2.39 mIU/ML
[2020-06-30 17:38] LABS: Anion Gap 27 mmol/L (8-16); Blood Urea Nitrogen 17 mg/dL (7-17); Calcium 8.8 mg/dL (8.4-10.2); Carbon Dioxide 7 mmol/L (22-30); Chloride 93 mmol/L (98-107); Estimated CRCL calculation 61 ml/min; Estimated Glomerular Filt Rate > 60; Potassium 5.5 mmol/L (3.4-5.0); Sodium 127 mmol/L (137-145)
[2020-06-30] MEDS: FAMOTIDINE 20 MG/2 ML VIAL IV PUSH (17:39)
[2020-06-30 17:46] LABS: Glucose Point of Care > 500 (65-105)
--- NOTE | 2020-06-30 17:48 | ED.GENADULT ---
HPI - General Adult General Chief complaint: Recheck/Abnormal Lab/Rx Stated complaint: sob/post secondary professional/n/v Time Seen by Provider: 06/30/20 16:51 Source: patient Mode of arrival: ambulatory Limitations: no limitations History of Present Illness HPI narrative: Patient is an insulin-dependent diabetic who presents for evaluation of one episode of emesis with chest pain rhinorrhea and sore throat for the last 2 days patient notes that she has not felt well but denies any urinary vaginal complaints diarrhea patient notes that she had had the one episode of emesis patient notes that her sugars have been up and down. Patient notes mild aching pain of the throat made worse with swallowing. Patient on arrival to emergency department is in the room in no distress. Patient notes some discomfort in the suprapubic region as well as in the mid sternum. Midsternal pain is worse with deep breathing and movement. Patient denies sick contacts. Related Data Home Medications Medication Instructions Recorded Confirmed Lantus Solostar U-100 Insulin 33 unit SUBCUT HS 03/05/20 04/04/20 gabapentin 600 mg PO TID 03/05/20 04/04/20 insulin lispro [Humalog KwikPen 1 - 5 unit SUBCUT TIDWM 03/05/20 04/04/20 Insulin] insulin lispro [Humalog KwikPen 5 unit SUBCUT TIDWM 03/05/20 04/04/20 Insulin] Allergies Allergy/AdvReac Type Severity Reaction Status Date / Time No Known Allergies Allergy Verified 06/30/20 16:16 Review of Systems Review of Systems: All systems reviewed & are unremarkable except as noted in HPI and below PMFSH Past Medical History Medical History DKA (diabetic ketoacidosis) Type I diabetes mellitus Family History Family History Mother Thyroid disease Father Well adult Thyroid disease Social History Social History Smoking status: Never smoker Alcohol intake: never Substance use: never Additional living arrangements comments: Resides with boyfriend. No children. 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 HEAD: Normocephalic, atraumatic. EYES: PERRLA and EOMI. ENT: Nares clear, no rhinorrhea or epistaxis. Mucous membranes moist. Oropharynx with mild tonsillar hypertrophy no exudate or other lesions. Uvula midline no trismus or drooling NECK: Supple. No adenopathy or masses. CHEST: Clear to auscultation. No respiratory distress. No wheezes rales or rhonchi HEART: Tachycardic rate and regular rhythm. No murmur heard. Normal peripheral pulses. ABDOMEN: Soft, suprapubic tenderness to palpation, nondistended EXTREMITIES: Normal range of motion. No edema. SKIN: Warm, dry, no rash. NEURO: No focal deficits. Alert and oriented x3. Cranial nerves II through XII grossly intact PSYCH: Normal mood and affect. Course Course Emergency Course: Patient in the room at this time will admitted to the ICU on an insulin drip secondary to DKA patient also swab for COVID patient feeling better with interventions has received 3 L in the emergency department will be having continued hydration and reevaluation Consultations Consultation #1: Discussed case with the casting tester and hospitalist who have agreed to accept the patient Date: 06/30/20 Time: 18:17 Vital Signs Vital signs: Vital Signs Temperature 99.3 F 06/30/20 16:20 Pulse Rate 132 H 06/30/20 16:20 Respiratory Rate 30 H 06/30/20 16:20 Blood Pressure 104/64 06/30/20 16:20 Pulse Oximetry 100 06/30/20 16:20 Temperature 99.3 F 06/30/20 16:20 Pulse Rate 131 H 06/30/20 16:41 Respiratory Rate 30 H 06/30/20 16:20 Blood Pressure 104/64 06/30/20 16:20 Pulse Oximetry 100 08
[2020-06-30 17:57] LABS: Glucose 847 mg/dL (65-105)
[2020-06-30 18:05] LABS: Beta-Hydroxybutyrate/Acetoacetate 8.82 mmol/L (0.02-0.27)
[2020-06-30 18:05] LABS: Hemoglobin A1C 13.8 % (<5.7)
[2020-06-30 18:49] LABS: Add Urine Microscopic? YES; Appearance Urine Clear (Clear); Bilirubin Urine Negative (Negative); Blood Urine Negative (Negative); Color Urine Colorless (Yellow); Glucose Urine UA 3+ mg/dL (Negative); Ketones Urine 2+ mg/dL (Negative); Leukocyte Esterase Ur Negative LEU/UL (Negative); Mucus Urine Rare /lpf; Nitrate Urine Negative (Negative); Protein Urine Negative (Negative); RBC Urine 0-2 /hpf (0-2); Specific Grav Ur 1.023 (1.001-1.035); Squamous Epithelial Cell Urine Occasional /hpf (Few); Urobilinogen Urine Negative mg/dL (<2.0); WBC Urine 0-3 /hpf
[2020-06-30] MEDS: INSULIN HUMAN REGULAR (*BKC) 100 UNITS/ML 6 UNITS IV PUSH (18:49)
[2020-06-30] MEDS: INSULIN HUMAN REGULAR (*BKC) 100 UNITS in SODIUM CHLORIDE 0.9% IV 99 ML 15.7 UNITS IV CONT (18:51)
--- NOTE | 2020-06-30 20:49 | ADMGEN ---
This patient, Meenu Mohan, was admitted to Intensive Care Unit-3 at 2030 on 06/30/2020. Patient/family oriented to hospital policies and general routines including ID bracelet, bed and alarms, visiting hours, pain management, procedures, bathroom and other care routines, personal items, smoking policy, room service/diet, and visiting hours. Valuables list has been completed. Information on how to activate the Rapid Response Team has been discussed. Patient/Family are encouraged to report perceived risks to care and to ask questions if they do not understand what they are told or what they should do.
--- NOTE | 2020-06-30 21:15 | PM.IMHP ---
H&P: HPI History of Present Illness Date/Time: 06/30/20 21:15 Chief complaint: Hyperglycemia and other symptoms. Narrative: Meenu Mohan is a 24-year-old female with type 1 diabetes and history of diabetic ketoacidosis who presented to the emergency department earlier today for evaluation of hyperglycemia and other symptoms. About 4 days ago, she notes a gradual onset of a sore throat, worse with swallowing, associated with mild sinus congestion. Over the last 2 days she has been feeling worse, with epigastric burning, nausea, and one episode of emesis. Today she developed chest pain that she describes as burning i and occasionally tight, which seems to radiate to the back, neck, and shoulders and was associated with shortness of breath. She reports similar symptoms with previous episodes of DKA. Her glucose has also been running high, up to 600 in the past 24 hours. She was found to be in diabetic ketoacidosis and is being admitted in this setting. At the time my evaluation, she reports feeling somewhat better. She denies fever, chills, and sweats. No headache or ear pain. She denies rash. She has not had exertional chest pain or pleuritic pain. She is no longer feeling short of breath. She denies cough. No hematemesis, diarrhea, or dysuria. Epigastric burning has since resolved. Review of Systems Review of Systems: Narrative: Twelve systems were reviewed with pertinent positives and negatives as per HPI. She is followed by an head animal trainer at [facility], and is hoping to get back on the insulin pump (her insurance quit paying for it several years ago ). She does suffer from neuropathy from just below the knees down to the toes. She denies retinopathy and nephropathy. She has had some mild palpitations which is not unusual for her when she has DKA. She goes on to say that her baseline heart rate is around 100. She has no history of thyroid disease. She has not had a menstrual period since January, and states that her cycles have been messed up since she stopped taking the Depo shot last fall. Except as documented, all other systems were reviewed and are negative. [facility] Past Medical History Medical History (Updated 06/30/20 @ 22:30 by Morenita Hugo PA-C) Diabetic ketoacidosis Multiple hospitalizations for such. Single seizure (~2018) Secondary to hypoglycemia. Type I diabetes mellitus Diagnosed at the age of 2. With peripheral neuropathy of the lower legs. Hemoglobin A1c was 13.8% on 06/30/2020. Surgical History Surgical History (Updated 06/30/20 @ 22:12 by Morenita Hugo PA-C) No history of previous surgery Family History Family History (Updated 06/30/20 @ 20:16 by Morenita Hugo PA-C) Mother Thyroid disease Father Thyroid disease Social History Social History (Updated 06/30/20 @ 22:13 by Morenita Hugo PA-C) Social History: Surrogate decision maker: Kelsi Pulliam, mother. Code status: Full code. Smoking status: Never smoker Alcohol intake: never Substance use: never Additional living arrangements comments: Resides with her mother, grandmother, and brother. No children. 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 Gender identity (if verbalized by the patient): Female Spiritual care concerns: No Meds Home Medications and Allergies Home Medications Medication Instructions Recorded Confirmed Type gabapentin 300 mg PO TID 06/30/20 06/30/20 History insulin glargine [Lantus U-100 38 unit SUBCUT HS 06/30/20 06/30/20 History Insulin] insulin lispro [Humalog KwikPen See Rx Instructions .ROUTE .COMPLEX 06/30/20 06/30/20 History Insulin] Allergies Allergy/AdvReac Type Severity Reaction Status Date / Time No Known Allergies Allergy Verified 06/30/20 19:48 Vital Signs Vital Signs - 24 hr 06/30/20 16:20 06/30/20 16:41 06/30/20 17:00 Temperature 99.3 F Pulse Rate 132 H 131 H 140 H Respiratory Rate 3
[2020-06-30] MEDS: KCL 20 MEQ/D5/0.45% SOD CHL 1,000 ML 150 ML IV CONT (21:41)
[2020-06-30 22:14] LABS: Glucose Point of Care 450 (65-105)
[2020-06-30 22:15] LABS: Glucose Point of Care 188 (65-105)
[2020-06-30] MEDS: PENICILLIN G BENZATHINE 1,200,000 UNITS/2 ML SYRINGE 1200000 UNITS IM (22:54)
[2020-06-30 23:19] LABS: Anion Gap 19 mmol/L (8-16); Blood Urea Nitrogen 14 mg/dL (7-17); Calcium 8.3 mg/dL (8.4-10.2); Carbon Dioxide 8 mmol/L (22-30); Chloride 113 mmol/L (98-107); Estimated CRCL calculation 75 ml/min; Estimated Glomerular Filt Rate > 60; Glucose 184 mg/dL (65-105); Potassium 4.3 mmol/L (3.4-5.0); Sodium 140 mmol/L (137-145)
[2020-06-30 23:27] LABS: Thyroid Stimulating Hormone Reflex 0.626 uIU/mL (0.465-4.68)
[2020-07-01] VITALS (12 sets, daily range): BP systolic 100–128; BP diastolic 63–93; PULSE 106–129; RESP 15–25; TEMP 35.8–36.6; O2SAT 100
[2020-07-01] MEDS: GABAPENTIN 300 MG CAPSULE PO ×4 (00:02→18:02)
[2020-07-01 00:25] LABS: Glucose Point of Care 175 (65-105)
[2020-07-01 00:25] LABS: Glucose Point of Care 164 (65-105)
[2020-07-01 02:32] LABS: Anion Gap 9 mmol/L (8-16); Blood Urea Nitrogen 12 mg/dL (7-17); Calcium 8.1 mg/dL (8.4-10.2); Carbon Dioxide 16 mmol/L (22-30); Chloride 111 mmol/L (98-107); Estimated CRCL calculation 85 ml/min; Estimated Glomerular Filt Rate > 60; Glucose 122 mg/dL (65-105); Potassium 4.5 mmol/L (3.4-5.0); Sodium 136 mmol/L (137-145)
[2020-07-01 03:04] LABS: Glucose Point of Care 155 (65-105)
[2020-07-01 03:04] LABS: Glucose Point of Care 115 (65-105)
[2020-07-01 03:04] LABS: Glucose Point of Care 110 (65-105)
[2020-07-01] MEDS: KCL 20 MEQ/D5/0.45% SOD CHL 1,000 ML 150 ML IV CONT (05:16)
[2020-07-01 05:54] LABS: Hematocrit 37.9 % (37.0-47.0); Hemoglobin 12.1 g/dL (12.0-15.0); Mean Corpuscular HGB Conc 31.9 g/dl (32-36); Mean Corpuscular Volume 87.7 fl (80-100); Mean Platelet Volume 10.8 fl (7.4-10.4); Platelet Count Result 245 k/mm3 (150-375); Red Blood Count 4.32 M/mm3 (4.2-5.4); Red Cell Distribution Width 14.6 % (11.5-14.5); White Blood Count 6.2 K/mm3 (4.5-10.0)
[2020-07-01 06:23] LABS: Anion Gap 10 mmol/L (8-16); Blood Urea Nitrogen 8 mg/dL (7-17); Calcium 7.9 mg/dL (8.4-10.2); Carbon Dioxide 14 mmol/L (22-30); Chloride 111 mmol/L (98-107); Estimated CRCL calculation 98 ml/min; Estimated Glomerular Filt Rate > 60; Glucose 137 mg/dL (65-105); Magnesium 2.1 mg/dL (1.6-2.3); Potassium 4.4 mmol/L (3.4-5.0); Sodium 135 mmol/L (137-145)
[2020-07-01 07:03] LABS: Glucose Point of Care 116 (65-105)
[2020-07-01 07:03] LABS: Glucose Point of Care 118 (65-105)
[2020-07-01 07:03] LABS: Glucose Point of Care 91 (65-105)
[2020-07-01 07:03] LABS: Glucose Point of Care 128 (65-105)
[2020-07-01] MEDS: FAMOTIDINE 20 MG/2 ML VIAL IV PUSH (08:09)
[2020-07-01 08:29] LABS: Glucose Point of Care 115 (65-105)
[2020-07-01] MEDS: INSULIN GLARGINE (*BKC) 100 UNITS/ML 15 UNITS SUB-Q ×2 (08:34→16:32)
--- NOTE | 2020-07-01 09:07 | WPDCNINT ---
Assessment and Plan Assessment and plan (1) DKA (diabetic ketoacidosis): Code(s): E11.10 - Type 2 diabetes mellitus with ketoacidosis without coma Status: Acute Assessment and Plan: anion gap has closed. patient now has hyperchloremic acidosis start Lantus, with meal insulin, and sliding scale insulin drip to be discontinued start diet will change IV fluids to half-normal saline once patient starts eating (2) Type I diabetes mellitus: Qualifiers: Diabetes mellitus complication status: with hyperglycemia Qualified Code(s): E10.65 - Type 1 diabetes mellitus with hyperglycemia Code(s): E10.9 - Type 1 diabetes mellitus without complications Status: Acute Assessment and Plan: see above (3) Acute streptococcal pharyngitis: Code(s): J02.0 - Streptococcal pharyngitis Status: Acute Assessment and Plan: penicillin G IM given in ER (4) Suspected COVID-19 virus infection: Code(s): Z20.828 - Contact with and (suspected) exposure to other viral communicable diseases Status: Acute Assessment and Plan: COVID-19 suspected. SARS-CoV-2 PCR sent and results pending Patient is in Airborne, Droplet and Contact Isolation (5) Diabetic neuropathy: Code(s): E11.40 - Type 2 diabetes mellitus with diabetic neuropathy, unspecified Status: Acute Assessment and Plan: continue Neurontin (6) DVT prophylaxis: Code(s): Z29.9 - Encounter for prophylactic measures, unspecified Status: Acute Assessment and Plan: SCDs Additional Plan transfer out of ICU today Roller Repairer Consult Note Consult date: 07/01/20 Time Seen: 09:00 HPI: Meenu Mohan is a 24 year old female With past medical history of type 1 diabetes and DKA admissions presented with chief complaint of elevated blood sugars, sore throat and nausea vomiting. patient used to be on insulin pump but switched to sliding scale and Lantus. says for last 3-4 days patient have been having sore throat, nausea and vomiting. her p.o. intake decreased and her blood sugars were running high hence she presented to ER. she denies fever chest pain shortness of breath or cough. no abdominal pain no change of sensation of smell or taste, no sick contact or recent travel. she claims compliance further insulin and takes 38 units of Lantus at night and 4-5 units of insulin with meal on average. regarding sore throat patient states he had pain when talking or eating but did not had any fever. in ER patient was found to be in DKA, patient was given IV fluid bolus, penicillin G for sore throat and started on insulin infusion Review of Systems Review of Systems: All systems reviewed & are unremarkable except as noted in HPI and below ( HPI) PMFSH Past Medical History Medical History Diabetic ketoacidosis Multiple hospitalizations for such. Single seizure (~2018) Secondary to hypoglycemia. Type I diabetes mellitus Diagnosed at the age of 2. With peripheral neuropathy of the lower legs. Hemoglobin A1c was 13.8% on 06/30/2020. Surgical History Surgical History No history of previous surgery Family History Family History Mother Thyroid disease Father Thyroid disease Social History Social History Social History: Surrogate decision maker: Kelsi Pulliam, mother. Code status: Full code. Smoking status: Never smoker Alcohol intake: never Substance use: never Additional living arrangements comments: Resides with her mother, grandmother, and brother. No children. 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 Gender identity (if verbalized by the patient): Female Spiritual care concerns: No Meds Home Medicat
[2020-07-01] MEDS: SODIUM CHLORIDE 0.45% 1,000 ML 75 ML IV CONT (09:59)
[2020-07-01 10:18] LABS: Anion Gap 11 mmol/L (8-16); Blood Urea Nitrogen 6 mg/dL (7-17); Calcium 8.2 mg/dL (8.4-10.2); Carbon Dioxide 16 mmol/L (22-30); Chloride 104 mmol/L (98-107); Estimated CRCL calculation 98 ml/min; Estimated Glomerular Filt Rate > 60; Glucose 307 mg/dL (65-105); Sodium 131 mmol/L (137-145)
[2020-07-01] MEDS: INSULIN ASPART (*BKC) 100 UNITS/ML SUB-Q ×4 (12:00→16:33)
[2020-07-01 12:13] LABS: SARS-CoV-2 RNA PCR Negative
[2020-07-01 14:40] LABS: Anion Gap 17 mmol/L (8-16); Blood Urea Nitrogen 7 mg/dL (7-17); Calcium 8.2 mg/dL (8.4-10.2); Carbon Dioxide 11 mmol/L (22-30); Chloride 104 mmol/L (98-107); Estimated CRCL calculation 85 ml/min; Estimated Glomerular Filt Rate > 60; Glucose 342 mg/dL (65-105); Potassium 4.5 mmol/L (3.4-5.0); Sodium 132 mmol/L (137-145)
[2020-07-01 14:42] LABS: Glucose Point of Care 324 (65-105)
[2020-07-01 14:42] LABS: Glucose Point of Care 348 (65-105)
[2020-07-01 16:40] LABS: Glucose Point of Care 253 (65-105)
--- NOTE | 2020-07-01 17:58 | PM.IMPN ---
Progress Note: A&P Assessment and Plan (1) Diabetic ketoacidosis: Qualifiers: Diabetes mellitus complication detail: without coma Diabetes mellitus type: type 1 Qualified Code(s): E10.10 - Type 1 diabetes mellitus with ketoacidosis without coma Code(s): E11.10 - Type 2 diabetes mellitus with ketoacidosis without coma Status: Acute (2) Acute streptococcal pharyngitis: Code(s): J02.0 - Streptococcal pharyngitis Status: Acute (3) Electrolyte abnormality: Code(s): E87.8 - Other disorders of electrolyte and fluid balance, not elsewhere classified Status: Acute (4) Type I diabetes mellitus: Qualifiers: Diabetes mellitus complication status: with hyperglycemia Qualified Code(s): E10.65 - Type 1 diabetes mellitus with hyperglycemia Code(s): E10.9 - Type 1 diabetes mellitus without complications Status: Acute (5) Epigastric pain: Code(s): R10.13 - Epigastric pain Status: Acute (6) Sinus tachycardia: Code(s): R00.0 - Tachycardia, unspecified Status: Acute (7) Diabetic neuropathy: Code(s): E11.40 - Type 2 diabetes mellitus with diabetic neuropathy, unspecified Status: Acute (8) Suspected COVID-19 virus infection: Code(s): Z20.828 - Contact with and (suspected) exposure to other viral communicable diseases Status: Acute Assessment and Plan: DKA present on arrival to the emergency department with severe hyperglycemia (random glucose 847), metabolic acidosis, and ketosis. DKA was likely precipitated by her underlying strep throat however her diabetes is not well controlled with an A1c today of 13.8%. She was started on an insulin drip. Her AG closed. She was transtioned to Lantus. No epigastric pain so probably related to the DKA. test negative. Continue pepcd. COVID negative. She was given penicillin G benzathine in the emergency department for her strep throat. Advance her home dose of Lantus to 45U and contiue meal time insulin at 8U (takes ususally 5-10U). Continue IV fluids to see if tachycardia improves. Census Taker and Diab educator to see Subjective Date/time seen: 07/01/20 17:58 Interval history: 24yo female with DM type I here for hyperglycemia and found to be in DKA. She began to have sore throat and othe symproms. SHe noticed her glucose was climbing. SHe has ketone sticks but they are old. She sees Dr hunter at [facility] for her DM. She did not call him. Her last DKA episode was a few months ago. She does not have numbness in her feet today but does have this symptom at times. She has noted that one foot is cooler than the other. She feels well today. Off the drip since 11am. She is COVID negative. She has been transitioned to Lantus. She is still tachycardic but patient states this is chronic and was on a 'heart medication' in the past but stopped due to low BP. She takes 38U at night and on average 5-10U at meal times. She runs high all the time but with lows on rare occasions. Exam Narrative: Exam Narrative: AF 96.6 112/80 115 25 100% ra Gen - NARD Chest - CTA bilaterally, nml RR CV - Tachycardic but regular. Telemetry showing sinus tachycardia. Abd - Soft, NT/ND, Positive BS Ext - No pedal edema. 2+ DP pulses bilaterally. Neuro - Alert and oriented. Nonfocal exam. Psych - Nml mood and affect Skin - No skin breakdown noted in her feet. Her right foot is cool to touch compared to the left. Objective Data Vital Signs Vital Signs: Vital Signs - 24 hr 06/30/20 18:00 06/30/20 18:45 06/30/20 19:49 Temperature Pulse Rate 137 H 133 H 130 H Respiratory Rate 22 H 22 H 20 Blood Pressure 119/77 110/64 107/56 L Pulse Oximetry 100 100 99 06/30/20 20:24 06/30/20 20:30 06/30/20 22:00 Temperature 98.2 F 97.7 F Pulse Rate 95 132 H 130 H Respiratory Rate 18 18 18 Blood Pressure 134/86 123/82 122/94 H Pulse Oximetry 100 100 100 07/01/20 00:00 08
--- NOTE | 2020-07-01 20:50 | PC.NURSE ---
This patient, Meenu Mohan, was received from [ICU] on 07/01/20 at 2050. Personal belongings list checked and signed. Patient/family oriented to unit policies and routines
[2020-07-01 21:07] LABS: Glucose Point of Care 302 (65-105)
[2020-07-01] MEDS: FAMOTIDINE 20 MG TABLET PO (21:39)
[2020-07-01] MEDS: SODIUM CHLORIDE 0.9% IV 1,000 ML 100 ML IV CONT (21:39)
[2020-07-01] MEDS: INSULIN GLARGINE (*BKC) 100 UNITS/ML 45 UNITS SUB-Q (21:49)
[2020-07-02 02:00] VITALS: BP 117/75; PULSE 102; RESP 16; TEMP 36.6; O2SAT 100
[2020-07-02 02:13] LABS: Glucose Point of Care 225 (65-105)
[2020-07-02 05:51] VITALS: BP 110/75; PULSE 97; RESP 16; TEMP 36.4; O2SAT 100
[2020-07-02 06:31] LABS: Anion Gap 8 mmol/L (8-16); Blood Urea Nitrogen 7 mg/dL (7-17); Calcium 8.4 mg/dL (8.4-10.2); Carbon Dioxide 20 mmol/L (22-30); Chloride 109 mmol/L (98-107); Estimated CRCL calculation 115 ml/min; Estimated Glomerular Filt Rate > 60; Glucose 145 mg/dL (65-105); Sodium 137 mmol/L (137-145)
[2020-07-02 07:27] LABS: Potassium 3.8 mmol/L (3.4-5.0)
[2020-07-02 08:07] LABS: Glucose Point of Care 89 (65-105)
[2020-07-02] MEDS: INSULIN ASPART (*BKC) 100 UNITS/ML SUB-Q ×2 (08:08→12:01)
[2020-07-02] MEDS: FAMOTIDINE 20 MG TABLET PO (08:11)
[2020-07-02] MEDS: SODIUM CHLORIDE 0.9% IV 1,000 ML 100 ML IV CONT (08:11)
[2020-07-02] MEDS: GABAPENTIN 300 MG CAPSULE PO ×2 (08:19→12:03)
[2020-07-02 08:31] VITALS: BP 131/91; PULSE 102; RESP 18; TEMP 36.2; O2SAT 100
--- NOTE | 2020-07-02 10:58 | PC.NURSE ---
Dr. Doss made aware that the nursing educator has not seen the pt. Dr. Doss still okay with discharging pt. Providing nursing educator card to the pt to call for an outpatient appointment.
[2020-07-02 11:47] LABS: Glucose Point of Care 112 (65-105)
--- NOTE | 2020-07-02 18:41 | PM.DS ---
DS: Admitting Diagnosis Admitting Diagnosis Admitting Diagnosis: Type 1 diabetes mellitus with ketoacidosis without coma DS: Discharge Diagnosis Discharge Diagnosis (1) Diabetic ketoacidosis: Qualifiers: Diabetes mellitus type: type 1 Diabetes mellitus complication detail: without coma Qualified Code(s): E10.10 - Type 1 diabetes mellitus with ketoacidosis without coma Code(s): E11.10 - Type 2 diabetes mellitus with ketoacidosis without coma Status: Acute (2) Acute streptococcal pharyngitis: Code(s): J02.0 - Streptococcal pharyngitis Status: Acute (3) Electrolyte abnormality: Code(s): E87.8 - Other disorders of electrolyte and fluid balance, not elsewhere classified Status: Acute (4) Type I diabetes mellitus: Qualifiers: Diabetes mellitus complication status: with hyperglycemia Qualified Code(s): E10.65 - Type 1 diabetes mellitus with hyperglycemia Code(s): E10.9 - Type 1 diabetes mellitus without complications Status: Acute (5) Epigastric pain: Code(s): R10.13 - Epigastric pain Status: Acute (6) Sinus tachycardia: Code(s): R00.0 - Tachycardia, unspecified Status: Acute (7) Diabetic neuropathy: Code(s): E11.40 - Type 2 diabetes mellitus with diabetic neuropathy, unspecified Status: Acute (8) Suspected COVID-19 virus infection: Code(s): Z20.828 - Contact with and (suspected) exposure to other viral communicable diseases Status: Acute Assessment and Plan: DKA present on arrival to the emergency department with severe hyperglycemia (random glucose 847), metabolic acidosis, and ketosis. DKA was likely precipitated by her underlying strep throat however her diabetes is not well controlled with an A1c today of 13.8%. She was started on an insulin drip. Her AG closed. She was transtioned to Lantus. No epigastric pain so probably related to the DKA. test negative. Continue pepcd. COVID negative. She was given penicillin G benzathine in the emergency department for her strep throat. Advanced her home dose of Lantus to 40U and contiue meal time insulin at 8U (takes ususally 5-10U). ground -discharge gap 8 with CO2 up to coronary potassium 3.8 taken diet well and feeling much better DS: Summary Hospital Course Hospital Course: 24-year-old female type 1 diabetes admitted with nausea and vomit like dehydrated ketoacidosis. Had strep pharyngitis and treated with repair G IM. Hydrated treated with ID insulin till gap closed. A.m. discharge fasting sugar 145 CO2 up to 2018 gap only 8. Tolerating a diet negative will be discharged home. Will follow-up with her primary care and it application support analyst and return to work on the Time Spent with Patient Time attestation: Total time spent providing and/or coordinating discharge services: 35 minutes Exam Narrative: Exam Narrative: condition on discharge blood pressure 130/90 pulse is 100 afebrile pharynx does not look erythematous and I see no exudate lungs clear CV tachy no murmurs or gallops abdomen is soft nontender bowel sounds normal active extremities without edema good distal pulses neuro up and about and taking a normal diet with DS: Data Data Completed and Pending Labs on day of discharge: Labs from last 24 hours 07/02/20 07/02/20 07/02/20 11:44 08:01 05:34 Sodium 137 Potassium 3.8 Chloride 109 H Carbon Dioxide 20 L Anion Gap 8 BUN 7 Creatinine 0.50 L Estim Creat Clear Calc 115 Estimated GFR > 60 Glucose 145 H POC Capillary Glucose 112 H 89 Calcium 8.4 07/02/20 07/01/20 02:10 21:00 Sodium Potassium Chloride Carbon Dioxide Anion Gap BUN Creatinine Estim Creat Clear Calc Estimated GFR Glucose POC Capillary Glucose 225 H 302 H Calcium Discharge Plan Discharge Attending physician on discharge: Sreekatnh Doss
== END 2020-07-02 12:20 | disposition home or self-care (01) | DRG 420 ==
LOC: ANHED 18:29 → ANHICU 19:29 → ANH3MED 07-02 03:17 → ANHICU 07-05 13:39
PROVIDERS: Emergency Medicine Emergency Medical Services; Internal Medicine; Physician Assistant; Admitting Provider Family Medicine; Emergency Provider Emergency Medicine; Visit Provider Internal Medicine
DX: E10.10 Type 1 diabetes mellitus with ketoacidosis without coma (principal); E87.8 Other disorders of electrolyte and fluid balance, not elsewhere classified; E10.42 Type 1 diabetes mellitus with diabetic polyneuropathy; J02.0 Streptococcal pharyngitis; R10.13 Epigastric pain; R00.0 Tachycardia, unspecified; Z20.828 Contact with and (suspected) exposure to other viral communicable diseases
CPT/HCPCS: 36415; 36600; 71045; 80048; 80076; 81001; 82010; 82375; 82805; 82948; 83036; 83050; 83690; 83735; 84100; 84443; 84484; 84702; 85025; 85027; 85610; 85730; 87635; 87880; 93005; 96361; 96365; 96375; 99291; A9270; C9803; J0131; J0561; J1815; J3480; J7030; U0003

== ENCOUNTER 2020-12-02 16:14 | Emergency (ER) | payer OTHER, SELFPAY ==
--- NOTE | ~2020-12-02 | XR_ITS ---
EXAMINATION: XR chest 1V portable DATE: 12/02/2020 18:29 INDICATION: Generalized chest and upper back pain. TECHNIQUE: frontal view of the chest was obtained. COMPARISON: Chest radiograph dated 06/30/2020 FINDINGS: Subtle opacity at the right lung base. Remainder of the lungs are clear. No pulmonary edema, pleural effusion or pneumothorax. The cardiomediastinal silhouette is normal. Visualized bones and soft tissu es are unremarkable. IMPRESSION: 1. Subtle opacity right lung base which could represent atelectasis, pneumonia or artifactual superim position of vascular, rib and breast shadows. Reviewed, dictated and finalized at location A. [place] STORE CLERK IMPRESSION: 1. Subtle opacity right lung base which could represent atelectasis, pneumonia or artifactual superimposition of vascular, rib and breast shadows.
[2020-12-02 16:48] VITALS: BP 110/80; PULSE 112; RESP 14; TEMP 36.7; O2SAT 99
[2020-12-02] MEDS: KETOROLAC 30 MG/ML VIAL (*BKC) IV PUSH (18:38)
[2020-12-02] MEDS: SODIUM CHLORIDE 0.9% IV 1,000 ML 999 ML IV CONT (18:38)
[2020-12-02 18:51] LABS: Basophils Percent Auto 0.3 % (0.2-1.2); Eosinophils Percent Auto 0.3 % (0-4.4); Hematocrit 41.4 % (37.0-47.0); Hemoglobin 13.6 g/dL (12.0-15.0); Lymphocytes Absolute Auto 1.45 K/mm3 (0.9-3.2); Lymphocytes Percent Auto 48.5 % (18.3-44.2); Mean Corpuscular HGB Conc 32.9 g/dl (32-36); Mean Corpuscular Hemoglobin 27.4 pg (26-34); Mean Corpuscular Volume 83.5 fl (80-100); Mean Platelet Volume 11.2 fl (7.4-10.4); Monocytes Absolute Auto 0.2 K/mm3 (0.1-0.6); Monocytes Percent Auto 7.7 % (2.6-8.5); Neutrophils Absolute Auto 1.3 K/mm3 (1.3-6.7); Neutrophils Percent Auto 43.2 % (45.5-73.1); Platelet Count Result 194 k/mm3 (150-375); Red Blood Count 4.96 M/mm3 (4.2-5.4); Red Cell Distribution Width 12.8 % (11.5-14.5)
[2020-12-02 19:05] LABS: Add Urine Microscopic? YES; Appearance Urine Cloudy (Clear); Bacteria Urine Trace /hpf; Bilirubin Urine Negative (Negative); Blood Urine Negative (Negative); Color Urine Yellow (Yellow); Glucose Urine UA 2+ mg/dL (Negative); Ketones Urine 2+ mg/dL (Negative); Leukocyte Esterase Ur 3+ LEU/UL (Negative); Mucus Urine Few /lpf; Nitrate Urine Positive (Negative); Protein Urine 2+ mg/dL (Negative); Specific Grav Ur 1.035 (1.001-1.035); Squamous Epithelial Cell Urine Many /hpf (Few); Urobilinogen Urine Negative mg/dL (<2.0); WBC Urine 31-50 /hpf
[2020-12-02 19:06] LABS: Anion Gap 7 mmol/L (8-16); Blood Urea Nitrogen 13 mg/dL (7-17); Calcium 9.2 mg/dL (8.4-10.2); Carbon Dioxide 27 mmol/L (22-30); Chloride 104 mmol/L (98-107); Estimated CRCL calculation 114 ml/min; Estimated Glomerular Filt Rate > 60; Glucose 127 mg/dL (65-105); Potassium 3.7 mmol/L (3.4-5.0); Sodium 138 mmol/L (137-145)
--- NOTE | 2020-12-02 20:11 | ED.GENADULT ---
HPI - General Adult General Chief complaint: Back Pain/Injury Stated complaint: severe back/neck pain Time Seen by Provider: 12/02/20 18:14 Source: patient Mode of arrival: ambulatory Limitations: no limitations History of Present Illness HPI narrative: Patient 25-year-old female who presents to emergency department for evaluation of upper and mid back pain that began over the last day denies injury or trauma or any fever chills nausea vomiting patient is an insulin-dependent diabetic notes that her sugars have been well controlled with monitor and pump. Patient on arrival is in no distress has not taken anything for her symptoms Related Data Home Medications Medication Instructions Recorded Confirmed insulin lispro [Humalog KwikPen See Rx Instructions .ROUTE .COMPLEX 06/30/20 12/02/20 Insulin] Allergies Allergy/AdvReac Type Severity Reaction Status Date / Time No Known Allergies Allergy Verified 12/02/20 17:47 Review of Systems Review of Systems: All systems reviewed & are unremarkable except as noted in HPI and below PMFSH Past Medical History Medical History (Updated 12/02/20 @ 20:15 by David Tejada PA-C) Diabetic ketoacidosis Multiple hospitalizations for such. Single seizure (~2017) Secondary to hypoglycemia. Type I diabetes mellitus Diagnosed at the age of 2. With peripheral neuropathy of the lower legs. Hemoglobin A1c was 13.8% on 06/30/2020. Surgical History Surgical History No history of previous surgery Family History Family History Mother Thyroid disease Father Thyroid disease Social History Social History Social History: Surrogate decision maker: Kelsi Pulliam, mother. Code status: Full code. Smoking status: Never smoker Alcohol intake: never Substance use: never Additional living arrangements comments: Resides with her mother, grandmother, and brother. No children. 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 Gender identity (if verbalized by the patient): Female Spiritual care concerns: No Exam Narrative: Exam Narrative: GENERAL: Well-appearing, well-nourished, and in no acute distress. HEAD: Normocephalic, atraumatic. EYES: PERRLA and EOMI. ENT: Nares clear, no rhinorrhea or epistaxis. Mucous membranes moist. CHEST: Clear to auscultation. No respiratory distress. No wheezes rales or rhonchi HEART: Regular rate and rhythm. No murmur heard. Normal peripheral pulses. ABDOMEN: Soft, nontender, nondistended EXTREMITIES: Normal range of motion. No edema. No deformities of the thoracic or lumbar region SKIN: Warm, dry, no rash. NEURO: No focal deficits. Alert and oriented x3. PSYCH: Normal mood and affect. Course Course Emergency Course: Patient hydrated and given antibiotics in the emergency department no high risk changes in the blood work found to have urinary tract infection is the likely etiology of her symptoms patient denies any URI symptoms will be discharged home will follow with primary care tomorrow has been given strict reasons to return patient agrees with this and feels comfortable with this plan Vital Signs Vital signs: Vital Signs Temperature 98.0 F 12/02/20 16:48 Pulse Rate 112 H 12/02/20 16:48 Respiratory Rate 14 12/02/20 16:48 Blood Pressure 110/80 12/02/20 16:48 Pulse Oximetry 99 12/02/20 16:48 Temperature 98.0 F 12/02/20 16:48 Pulse Rate 112 H 12/02/20 16:48 Respiratory Rate 14 12/02/20 16:48 Blood Pressure 110/80 12/02/20 16:48 Pulse Oximetry 99 12/02/20 16:48 Medical Decision Making [facility] Narrative Medical decision making narrative: Patient with urinary tract infection no distress felt appropriate for outpatient reevaluation given strict reasons to return Vital Signs Vital Signs: Vital
[2020-12-02 20:15] VITALS: BP 116/90; PULSE 107; RESP 17; O2SAT 100
== END 2020-12-02 20:30 | disposition home or self-care (01) ==
PROVIDERS: Emergency Medicine Emergency Medical Services; Emergency Provider Emergency Medicine; PCP Nurse Practitioner Family
DX: N39.0 Urinary tract infection, site not specified (principal); E10.9 Type 1 diabetes mellitus without complications; Z96.41 Presence of insulin pump (external) (internal); Z79.4 Long term (current) use of insulin
CPT/HCPCS: 36415; 71045; 80048; 81001; 81025; 85025; 87077; 87086; 87088; 87186; 96361; 96365; 96375; 99284; J0696; J1885; J7030